=== PATIENT | female | born 1950 | race Caucasian/White ===

== ENCOUNTER 2024-08-08 17:36 | Emergency (ER) | payer MEDICARE ==
[2024-08-08] MEDS: Ketorolac 15 MG/ML SDV IM ONE (19:40)
[2024-08-08] MEDS: Cyclobenzaprine 10 MG Tab PO ONE ×2 (19:47→19:48)
[2024-08-08] MEDS ORDERED: traMADol 50 MG Tab ONE (21:00)
== END 2024-08-08 21:18 | disposition home or self-care (01) ==
LOC: SUPCPDRO 17:36 → LB.ED 17:36
DX: S20.212A Contusion of left front wall of thorax, initial encounter (principal); W01.0XXA Fall on same level from slipping, tripping and stumbling without subsequent striking against object, initial encounter; Y93.89 Activity, other specified
CPT/HCPCS: 71101; 96372; 99284; A9270; J1885